=== PATIENT | male | born 1955 | race African-American/Black ===

== ENCOUNTER 2021-11-16 17:03 | Emergency (ER) | payer MEDICARE ==
[~2021-11-16] VITALS: Ht 177.8 cm; Wt 90.0 kg
[2021-11-16 17:54] LABS: BASO % 0 % (0-3); EOS % 0 % (0-3); HEMATOCRIT 39.7 % (39.0-53.0); HEMOGLOBIN 13.1 g/dL (13.0-17.5); LYMPH # 0.6 x10^3/uL (1.0-4.8); LYMPH % 12 % (24-48); MEAN CORPUSCULAR HEMOGLOBIN 29 pg (25-35); MEAN CORPUSCULAR HGB CONC 33 g/dL (31-37); MEAN CORPUSCULAR VOLUME 88 fL (79-100); MONO # 0.5 x10^3/uL (0.0-1.1); MONO % 10 % (0-9); NEUT # 3.8 x10^3/uL (1.8-7.7); NEUT % 77 % (31-73); PLATELET COUNT 145 x10^3/uL (140-400); RED CELL DISTRIBUTION WIDTH 13.7 % (11.5-14.5); WHITE BLOOD COUNT 4.9 x10^3/uL (4.0-11.0)
[2021-11-16 18:11] LABS: CALCIUM 8.1 mg/dL (8.5-10.1); CREATININE 0.9 mg/dL (0.7-1.3); POTASSIUM 3.5 mmol/L (3.5-5.1)
[2021-11-16 18:17] LABS: ALBUMIN 2.4 g/dL (3.4-5.0); ALBUMIN/GLOBULIN RATIO 0.5 (1.0-1.7); TOTAL BILIRUBIN 0.3 mg/dL (0.2-1.0); TOTAL PROTEIN 7.1 g/dL (6.4-8.2)
--- NOTE | 2021-11-16 18:26 | RAD ---
CT brain without contrast. HISTORY: Altered level of consciousness CT scan of brain was done without contrast. There is mucosal thickening in right maxillary and right ethmoid sinuses as well as in the base of the right frontal sinus. A skull fracture is not identified . Mastoids are normally aerated. There is motion artifact. There is decreased density in the left cer ebellum and to a lesser extent in the right cerebellum suggesting old infarcts. There is decreased de nsity in the parietal lobe posteriorly at the cortex from old infarct or old trauma. There are foci o f decreased density in the frontal lobes as well from old infarcts or trauma. There is no mass effect or shift of the midline. Ventricles are normal in size. An acute CVA is not identified. IMPRESSION: 1. Foci of encephalomalacia and decreased density in the cerebellum on each side more on the left shlomo n on the right, bilaterally in the parietal lobes posteriorly, to a lesser extent anteriorly in the f rontal lobes from old CVAs or old trauma. 2. No intracranial hemorrhage. 3. Sinusitis. PQRS Compliance Statement: One or more of the following individualized dose reduction techniques were utilized for this examinat ion: 1. Automated exposure control 2. Adjustment of the mA and/or kV according to patient size 3. Use of iterative reconstruction technique Electronically signed by: Luan Skinner MD (11/16/2021 6:23 PM) [facility]
[2021-11-16 19:59] LABS: BILIRUBIN,URINE NEGATIVE (NEG); CLARITY,URINE CLOUDY; COLOR,URINE YELLOW; NITRITE,URINE NEGATIVE (NEG); PH,URINE 5.5 (<5.0-8.0); PROTEIN,URINE 30 mg/dL (NEG-TRACE)
[2021-11-16 20:07] LABS: BACTERIA,URINE MODERATE /HPF (0-FEW)
[2021-11-16 20:08] LABS: AMORPHOUS SEDIMENT,UR PRESENT /HPF; HYALINE CASTS, URINE OCCASIONAL /HPF
[2021-11-16 20:09] LABS: RBC,URINE 0 /HPF (0-2)
--- NOTE | 2021-11-16 21:09 | PHYS DOC ---
Past Medical History Past Surgical History: No Surgical History General Adult EDM: Chief Complaint: SYNCOPE HPI: HPI: Limited HPI related to patient's history of MR, HPI history given by patient's aunt who is at bedside. Patient is a 66-year-old male who presents to the emergency department brought in by his aunt who is his primary caregiver, patient's aunt reports she was told by other family members that the patient did not immediately respond to questions asked to him while he was eating, she became concerned that he may be having a seizure. Patient reports he gets nervous sometimes and doesn't like to answer. Patient denies headaches, aches or pains, sore throat, shortness of breath, chest pains, or congestion. Patient's aunt reports patient has not experienced recent fever or chills. Has not seen a primary care physician in greater than 30 years. Is on no medications at home. Is acting normal for his baseline. Has a history of MR. Review of Systems: Review of Systems: 14 body systems of review of systems have been reviewed. See HPI for pertinent positives and negative responses, otherwise all other systems are negative, no npertinent or noncontributory. Constitutional: Negative except as outlined in HPI above. Skin: Negative except as outlined in HPI above. Eyes: Negative except as outlined in HPI above. HENT: Negative except as outlined in HPI above. Respiratory: Negative except as outlined in HPI above. Cardiovascular: Negative except as outlined in HPI above. GI: Negative except as outlined in HPI above. : Negative except as outlined in HPI above. Musculoskeletal: Negative except as outlined in HPI above. Integument: Negative except as outlined in HPI above. Neurologic: Negative except as outlined in HPI above. Endocrine: Negative except as outlined in HPI above. Lymphatic: Negative except as outlined in HPI above. Psychiatric: Negative except as outlined in HPI above. Heart Score: C/O Chest Pain: No Risk Factors: Risk Factors: DM, Current or recent (<one month) smoker, HTN, HLP, family history of CAD, obesity. Risk Scores: Score 0 - 3: 2.5% MACE over next 6 weeks - Discharge Home Score 4 - 6: 20.3% MACE over next 6 weeks - Admit for Clinical Observation Score 7 - 10: 72.7% MACE over next 6 weeks - Early Invasive Strategies Allergies: Allergies: Allergies Coded Allergies Type Severity Reaction Last Updated Verified No Known Drug Allergies 11/16/21 No Physical Exam: PE: Constitutional: Well developed, well nourished, no acute distress, non-toxic appearance. 66-year-old male in no apparent distress. HENT: Normocephalic, atraumatic. Eyes: Conjunctiva normal, no discharge. Neck: Normal range of motion, no stridor. Cardiovascular: No cyanosis appreciated, distal cap refill less than 2 seconds. Lungs & Thorax: Patient is in no respiratory distress, no audible adventitious lung sounds appreciated. Abdomen: Nontender, no abnormalities noted. Skin: Warm, dry, no erythema, no rash. Back: No tenderness, no deformities. Extremities: No tenderness, no cyanosis, no clubbing, ROM intact, no edema. Neurologic: Alert and oriented to self. Did know he was in the hospital however did not know the name of the hospital, patient did not know exactly day, was oriented to month., normal motor function, normal sensory function, no focal deficits noted. Psychologic: Affect normal, judgement normal, mood normal. Current Patient Data: Labs: Laboratory Tests Test 11/16/21 17:50 11/16/21 19:53 White Blood Count 4.9 x10^3/uL (4.0-11.0) Red Blood Count 4.50 x10^6/uL (4.30-5.70) Hemoglobin 13.1 g/dL (13.0-17.5) Hematocrit 39.7 % (39.0-53.0) Mean Corpuscular Volume 88 fL (79-100) Mean Corpuscular Hemoglobin 29 pg (25-35) Mean Corpuscular Hemoglobin Concent 33 g/dL (31-37) Red Cell Distribution Width 13.7 % (11.5-14.5) Platelet Count 145 x10^3/uL (140-400) Neutrophils (%) (Auto) 77 % (31-73) H Lymphocytes (%) (Auto) 12 % (24-48) L Monocytes (%) (Auto) 10 % (0-9) H Eosinophils (%) (Auto) 0 % (0-3) Basophils (%) (Auto) 0 % (0-3) Neutrophils # (Auto) 3.8 x10^3/uL (1.8-7.7) Lymphocytes # (Auto) 0.6 x10^3/uL (1.0-4.8) L Monocytes # (Auto) 0.5 x10^3/uL (0.0-1.1) Eosinophils # (Auto) 0.0 x10^3/uL (0.0-0.7) Basophils # (Auto) 0.0 x10^3/uL (0.0-0.2) Sodium Level 138 mmol/L (136-145) Potassium Level 3.5 mmol/L (3.5-5.1) Chloride Level 102 mmol/L (98-107) Carbon Dioxide Level 28 mmol/L (21-32) Anion Gap 8 (6-14) Blood Urea Nitrogen 16 mg/dL (8-26) Creatinine 0.9 mg/dL (0.7-1.3) Estimated GFR (Cockcroft-Gault) 85.0 BUN/Creatinine Ratio 18 (6-20) Glucose Level 111 mg/dL (70-99) H Calcium Level 8.1 mg/dL (8.5-10.1) L Total Bilirubin 0.3 mg/dL (0.2-1.0) Aspartate Amino Transferase (AST) 36 U/L (15-37) Alanine Aminotransferase (ALT) 19 U/L (16-63) Alkaline Phosphatase 57 U/L (46-116) Total Protein 7.1 g/dL (6.4-8.2) Albumin 2.4 g/dL (3.4-5.0) L Albumin/Globulin Ratio 0.5 (1.0-1.7) L Urine Collection Type Unknown Urine Color Yellow Urine Clarity Cloudy Urine pH 5.5 (<5.0-8.0) Urine Specific [place] 1.025 (1.000-1.030) Urine Protein 30 mg/dL (NEG-TRACE) Urine Glucose (UA) Negative mg/dL (NEG) Urine Ketones (Stick) Trace mg/dL (NEG) Urine Blood Negative (NEG) Urine Nitrite Negative (NEG) Urine Bilirubin Negative (NEG) Urine Urobilinogen Dipstick 1.0 mg/dL (0.2 mg/dL) Urine Leukocyte Esterase Negative (NEG) Urine RBC 0 /HPF (0-2) Urine WBC 11-20 /HPF (0-4) Urine Squamous Epithelial Cells Few /LPF Urine Amorphous Sediment Present /HPF Urine Bacteria Moderate /HPF (0-FEW) Urine Hyaline Casts Occasional /HPF Urine Mucus Mod /LPF Laboratory Tests 11/16/21 17:50 Laboratory Tests 11/16/21 17:50 Vital Signs: Vital Signs Date Time Temp Pulse Resp B/P (MAP) Pulse Ox O2 Delivery O2 Flow Rate FiO2 11/16/21 19:20 100/69 (79) 11/16/21 19:16 98 98 Room Air 11/16/21 17:05 97.7 15 97.7 EKG: EKG: [] Radiology/Procedures: Radiology/Procedures: REASON: Altered level of consciousness, DIFFICULTY HOLDING STILL PROCEDURE: CT HEAD WO CONTRAST CT brain without contrast. HISTORY: Altered level of consciousness CT scan of brain was done without contrast. There is mucosal thickening in right maxillary and right ethmoid sinuses as well as in the base of the right frontal sinus. A skull fracture is not identified. Mastoids are normally aerated. There is motion artifact. There is decreased density in the left cerebellum and to a lesser extent in the right cerebellum suggesting old infarcts. There is decreased density in the parietal lobe posteriorly at the cortex from old infarct or old trauma. There are foci of decreased density in the frontal lobes as well from old infarcts or trauma. There is no mass effect or shift of the midline. Ventricles are normal in size. An acute CVA is not identified. IMPRESSION: 1. Foci of encephalomalacia and decreased density in the cerebellum on each side more on the left than on the right, bilaterally in the parietal lobes posteriorly, to a lesser extent anteriorly in the frontal lobes from old CVAs or old trauma. 2. No intracranial hemorrhage. 3. Sinusitis. Course & Med Decision Making: Course & Med Decision Making Pertinent Labs and Imaging studies reviewed. (See chart for details) 66-year-old male, vital signs reviewed, presents emergency department for a reported altered mental status at home. This was not witnessed by primary caregiver, she was told by other family members patient did not respond immediately. Patient's physical examination is unremarkable other than his history of MR, patient's aunt who reports he she is his primary caregiver reports he is at mental status baseline. Will order CBC, CMP, urinalysis assay, CT head without contrast. Patient CT head without contrast nonconcerning for acute stroke or other acute process, does show indication of old CVA, patient does not have previous CT to compare, CBC and CMP unremarkable, urinalysis assay unremarkable. After monitoring the patient for a period of time, patient did not exhibit any altered mental status, patient's aunt reports she did not witness the altered mental status that brought him to the emergency department however has not witnessed any change from normal while he has been here in the emergency department. Patient's caregiver also reports he has periods of "nervousness "in which she does not respond immediately, however has not been followed up for his nervousness issues by a healthcare professional. Discussed with patient's primary caregiver importance of establishing primary care, will give information for area clinics and physicians to establish primary care. Patient continues to deny aches pains or physical complaints, remains hemodynamically stable at discharge time. Patient's reported primary caregiver is amenable to ED discharge planning. Discussed with the patient's caregiver all findings and diagnostic testing as well as the need to follow-up with their primary care provider for further evaluation and treatment or return to the ED if any new or worsening symptoms. Strict return precautions were also discussed at length, the patient voiced understanding and agreement with the discharge planning. The patient was nontoxic in appearance, in no apparent distress, and hemodynamically stable at the time of disposition. Dragon Disclaimer: EyeJot Disclaimer: This electronic medical record was generated, in whole or in part, using a voice recognition dictation system. Departure Departure Impression: Primary Impression: Nervousness Disposition: 01 HOME / SELF CARE / HOMELESS Condition: GOOD Referrals: NO PCP (PCP) Additional Instructions: You were seen today in the emergency department for an episode at home in which you did not respond immediately to your family members. This may be related to your nervousness. The CT scan of your head did not show any concerning findings, your urine and blood work did not show any concerning findings. You had reported that you do not have a primary care physician have not seen one for many years. It is very important that you establish care with a primary care physician, I am providing a pamphlet that has area clinics and physicians, please choose a primary care physician to establish a good relationship with a doctor. Please return immediately to the emergency department for return of symptoms, worsening symptoms or other concerns. Thank you for visiting our Emergency Department. It was a pleasure taking care of you today in the emergency department and we appreciate you trusting us with your care. If any additional problems come up don't hesitate to return to visit us. Please follow up with your primary care provider so they can plan additional care if needed and know about the problem that you had. If symptoms worsen come back to the Emergency Department. Any concerning symptoms that start such as chest pain, shortness of air, weakness or numbness on one side of the body, running high fevers or any other concerning symptoms return to the ER. EMERGENCY DEPARTMENT GENERAL DISCHARGE INSTRUCTIONS Thank you for coming to [facility] Emergency Department (ED) today and trusting us with you care. We trust that you had a positive experience in our Emergency Department. If you wish to speak to the department management, you may call the Director at [phone]. YOUR FOLLOW UP INSTRUCTIONS ARE FOLLOWS: 1. Do you have a private Doctor? If you do not have a private doctor, please ask for a resource list of physicians or clinics that may be able to assist you with follow up care. 2. The Emergency Physicain has interpreted your x-rays. The X-Ray specialist will also review them. If there is a change in the findings, you will be notified in 48 hours when at all possible. 3. A lab test or culture has been done, your results will be reviewed and you will be notified if you need a change in treatment. ADDITIONAL INSTRUCTIONS AND INFORMATION: 1. Your care today has been supervised by a physician who is specially trained in emergency care. Many problems require more than one evaluation for a complete diagnosis and treatment. We recommend that you schedule your follow up appointment as recommended to ensure complete treatment of you illness or injury. If you are unable to obtain follow up care and continue to have a problem, or if your condition worsens, we recommend that you return to the ED. 2. We are not able to safely determine your condition over the phone nor are we able to give sound medical advice over the phone. For these safety reasons, if you call for medical advice we will ask you to come to the ED for further evaluation. 3. If you have any questions regarding these discharge instructions please call the ED at [phone]. SAFETY INFORMATION: In the interest of safety, wellness, and injury prevention; we encourage you to wear your sealbelt, if you smoke; quite smoking, and we encourage family to use a protective helmet for bicycling and other sporting events that present an increased risk for head injury. IF YOUR SYMPTOMS WORSEN OR NEW SYMPTOMS DEVELOP, OR YOU HAVE CONCERNS ABOUT YOUR CONDITION; OR IF YOUR CONDITION WORSENS WHILE YOU ARE WAITING FOR YOUR FOLLOW UP APPOINTMENT; EITHER CONTACT YOUR PRIMARY CARE DOCTOR, THE PHYSICIAN WHOSE NAME AND NUMBER YOU WERE GIVEN, OR RETURN TO THE ED IMMEDIATELY. CAROL VENTURA APRN Nov 16, 2021 21:08
[2021-11-16 21:17] VITALS: BP 133/68
== END 2021-11-16 21:28 | disposition home or self-care (01) ==
LOC: ER 17:03 → EDBD 17:03 → ER 21:28
DX: R45.0 Nervousness (principal)
CPT/HCPCS: 36415; 70450; 80053; 81001; 85025; 87086; 99284